=== PATIENT | female | born 2000 | race Caucasian/White ===

== ENCOUNTER 2022-08-07 08:15 | Emergency (ER) | payer BC ==
[~2022-08-07] VITALS: Ht 162.6 cm; Wt 61.4 kg
[2022-08-07 08:33] VITALS: TEMP 98.5
[2022-08-07 08:37] LABS: COLLECTION METHOD CLEAN CATCH
[2022-08-07 08:56] LABS: HEMOGLOBIN 12.7 g/dl (12.5-16.0); MEAN CELL VOLUME 88 fl (80.0-100.0); MEAN CORPUSCULAR HEMOGLOBIN 31 pg (27-31); MEAN CORPUSCULAR HGB CONC 35 g/dl (33.0-37.0); MEAN PLATELET VOLUME 9.1 fl (7.4-10.4); PLATELET COUNT 241 K/mm3 (130-400); RED BLOOD COUNT 4.08 M/mm3 (4.10-5.30); REDCELL DISTRIBUTION WIDTH-CV 12.4 % (11.5-14.5)
[2022-08-07 08:57] LABS: MUCOUS Present (NOT PRESENT); URINE BACTERIA Rare /hpf (NONE SEEN); URINE RBC 0-2 /hpf (0-2)
[2022-08-07 08:58] LABS: PH 5.5 (5-8); URINE APPEARANCE Hazy (CLEAR/HAZY); URINE COLOR Yellow (YELLOW); URINE GLUCOSE Negative (NEGATIVE); URINE PROTEIN(semi-quant) TRACE (NEGATIVE)
[2022-08-07 08:59] LABS: URINE BLOOD Negative (NEGATIVE); URINE KETONE 4+ (NEGATIVE); URINE NITRATE Negative (NEGATIVE)
[2022-08-07 09:00] LABS: HEMATOCRIT 35.9 % (37.0-47.0)
[2022-08-07 09:14] LABS: BILIRUBIN,TOTAL 1.9 mg/dL (0.2-1.2); CREATININE, serum 0.7 mg/dL (0.57-1.11); POTASSIUM 3.7 mmol/L (3.5-4.5); TOTAL PROTEIN 6.7 gm/dL (6.2-8.1)
[2022-08-07 09:48] LABS: BAND 8 % (0-10); LYMPHOCYTE 57 % (20.0-51.0); NEUTROPHILS 35 % (42.0-75.2); PLATELET ESTIMATE NORMAL (NORMAL)
[2022-08-07 09:49] LABS: ANISOCYTOSIS 1+; OVALOCYTES 1+
[2022-08-07 10:18] VITALS: BP 114/78
[2022-08-07] MEDS ORDERED: ZOFRAN ODT4 MG PO (10:45)
[2022-08-07] MEDS ORDERED: PEPCID 20MG TAB20 MG PO (10:51)
[2022-08-07 10:57] VITALS: PULSE 66
== END 2022-08-07 10:57 | disposition home or self-care (01) ==
LOC: COL.ER 08:15
PROVIDERS: Emergency Medicine
DX: B27.90 Infectious mononucleosis, unspecified without complication (principal); R74.01 Elevation of levels of liver transaminase levels; E80.7 Disorder of bilirubin metabolism, unspecified
CPT/HCPCS: J2405; J7120